=== PATIENT | female | born 1975 | race Caucasian/White ===

== ENCOUNTER 2017-02-16 02:58 | Emergency (ER) | payer OTHER ==
[~2017-02-16] VITALS: Ht 165.1 cm; Wt 61.3 kg
[~2017-02-16 02:58] MED LIST: Aspirin E.C. PO; BENTYL10 MG PO; COMPAZINE10 MG PO; ESCITALOPRAM OX10 MG PO; IMITREX100 MG PO; XANAX0.25 MG PO
[2017-02-16] MEDS ORDERED: PERCOCET 5/31 TABLET PO (03:43)
[2017-02-16] MEDS ORDERED: ZOFRAN8 MG PO (03:43)
[2017-02-16 05:06] VITALS: BP 128/77
== END 2017-02-16 05:08 | disposition home or self-care (01) ==
LOC: EME → EDBD 02:58 → EME 02:58
PROC: 2W3MX1Z Immobilization of Left Lower Extremity using Splint (ICD-10-PCS; principal; 2017-02-16)
DX: S93.402A Sprain of unspecified ligament of left ankle, initial encounter (principal); W10.9XXA Fall (on) (from) unspecified stairs and steps, initial encounter; Y92.009 Unspecified place in unspecified non-institutional (private) residence as the place of occurrence of the external cause; G43.909 Migraine, unspecified, not intractable, without status migrainosus; Z88.6 Allergy status to analgesic agent; Z88.5 Allergy status to narcotic agent; Z88.8 Allergy status to other drugs, medicaments and biological substances
CPT/HCPCS: 73610; 99281; 99284; J2405; J3010

== ENCOUNTER 2017-02-21 19:10 | Emergency (ER) | payer OTHER ==
[~2017-02-21] VITALS: Ht 162.6 cm; Wt 61.3 kg
[~2017-02-21 19:10] MED LIST changes: +PERCOCET 5/31 TABLET PO; +ZOFRAN8 MG PO
[2017-02-21 20:01] LABS: HEMATOCRIT 38.6 % (36.0-46.0); MCH 29.4 PG (29.0-34.0); MCHC 33.2 G/DL (30.0-36.0); MCV 88.7 FL (83-99); MEAN PLAT.VOLUME 8.8 uM^3 (9.5-12.4); PLATELET COUNT 342 K/uL (156-360); RBC DIS.WIDTH-CV 11.9 % (11.8-14.6); RBC DIS.WIDTH-SD 38.5 % (39-53); RED BLOOD COUNT 4.35 M/uL (3.80-5.20); WHITE BLOOD COUNT 6.5 K/uL (4.1-10.2)
[2017-02-21 20:13] LABS: CHLORIDE 105 mEq/L (99-109); POTASSIUM 3.5 mEq/L (3.7-5.4); SODIUM 140 mEq/L (136-147)
[2017-02-21 20:15] LABS: GLUCOSE 96 mg/dL (70-99)
[2017-02-21 20:16] LABS: ANION GAP 7 MEQ/L (2-14)
[2017-02-21 20:18] LABS: GFR ESTIMATE (CALCULATED) > 59 mL/min/
[2017-02-21 20:19] LABS: UREA NITROGEN (BUN) 8 mg/dL (9-23)
[2017-02-21] MEDS ORDERED: KEFLEX500 MG PO (21:30)
[2017-02-21 21:58] VITALS: BP 139/92
== END 2017-02-21 22:00 | disposition home or self-care (01) ==
LOC: EME 19:10
PROVIDERS: Physician Assistant
DX: S92.902D Unspecified fracture of left foot, subsequent encounter for fracture with routine healing (principal); R60.0 Localized edema; M25.572 Pain in left ankle and joints of left foot
CPT/HCPCS: 80048; 85027; 93971; 99281; 99283; J1885; J3010